=== PATIENT | female | born 1995 | race Caucasian/White ===

== ENCOUNTER 2017-06-07 12:15 | Emergency (ER) | payer BC ==
[~2017-06-07] VITALS: Ht 167.6 cm; Wt 65.0 kg
[2017-06-07 13:25] LABS: INFLUENZA A NEGATIVE; INFLUENZA B NEGATIVE
[2017-06-07 14:23] VITALS: TEMP 99.6
[2017-06-07] MEDS ORDERED: ZOFRAN ODT4 MG PO (14:33)
[2017-06-07 14:47] VITALS: BP 94/60; PULSE 89
== END 2017-06-07 14:51 | disposition home or self-care (01) ==
LOC: COL.ER 12:15
PROVIDERS: Emergency Medicine
DX: B34.9 Viral infection, unspecified (principal); R00.0 Tachycardia, unspecified; Z88.0 Allergy status to penicillin
CPT/HCPCS: J1885; J2405; J7030